=== PATIENT | male | born 1945 | race Caucasian/White ===

== ENCOUNTER 2017-12-03 12:49 | Inpatient (IN) | payer OTHER ==
--- NOTE | 2017-12-03 14:13 | ED.PDOC ---
General ED Provider: Dr. MARY ALICE MORA Chief Complaint: Fever Stated Complaint: CC:Fever and Chills. HPI: 72 y/o cauc male patient brought in from [facility]. states they are visiting here from [facility] and for past 2 days has experienced fever and chills with T elevation to 101-102 deg. with sl resp congestion. 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 Also hx of dementia. Brought to ER for evaluation and treatment. Time Seen by Physician: 13:00 Mode of Arrival: Walk-In Information Source: Patient, Family Exam Limitations: No limitations Nursing and Triage Documentation Reviewed and Agree: Yes Reviewed sepsis parameters & appropriate labs ordered?: Yes System Inflammatory Response Syndrome: Temp 101F or Greater, Pulse >90 BPM Sepsis Protocol: For patient's 13 years and over: Temp is 96.8 and below OR 101 and greater Pulse >90 BPM Resp >20/minute Acutely Altered Mental Status Are patient's symptoms suggestive of a new infection, such as: -Pneumonia -Skin, Soft Tissue -Endocarditis -UTI -Bone, Joint Infection -Implantable Device -Acute Abdominal Infection -Wound Infection -Meningitis -Blood Stream Catheter Infection -Unknown Respiratory Complaint Exam - Respiratory Complaint/Exam Symptoms Are: Still present Timing: Intermittent Initial Severity: Moderate Current Severity: Mild Location: Chest Character: Reports: Non-productive cough Aggravating: Reports: None Alleviating: Reports: Upright position Associated Signs and Symptoms: Reports: Fever. Denies: Rapid breathing, Dyspnea , Chest pain, Pleuritic chest pain, Wheezing, Hemoptysis, Dizziness, Calf pain, Calf swelling, Edema, URI, Nasal congestion, Hoarseness, Sinus discomfort, Vomiting, Sore throat, Weight loss, Decreased oral intake, Increased thirst, Increased appetite, Increased urination History of Healthcare-Acquired Pneumonia: No Related Surgical History: Reports: None (Tonsillar surgery for cancer) Pulmonary Embolism Risk Factors: None Pseudomonas Risk Factors: Reports: None Tuberculosis Risk Factors: Reports: None Status Asthmaticus Risk Factors: Reports: None Home Oxygen Use: No Recent Stress Test: No Recent Echo/LV Function: No Current Antibiotic Use: No Current Asthma Medication Use: No Respiratory Distress: None Inadequate Respiratory Effort: No Dysphagia Present: No Stridor Present: No JVD Present: No Accessory Muscle Use: No Retractions: Not Present Diminished Breath Sounds: No Sinus Tenderness: None Grunting Respirations: No Kussmaul Respirations: No Differential Diagnoses: Bronchospasm (pneumonia) Review of Systems - Review Of Systems Constitutional: Reports: Chills, Fever Eyes: Reports: No symptoms Respiratory: Reports: Cough, Short of air. Denies: Stridor, Wheezing Cardiac: Reports: No symptoms GI: Reports: No symptoms : Reports: No symptoms Musculoskeletal: Reports: No symptoms Skin: Reports: No symptoms Neurological: Reports: No symptoms (mild dementia) Endocrine: Reports: No symptoms Hematologic/Lymphatic: Reports: No symptoms All Other Systems: Reviewed and Negative Past Medical History - Past Medical History Previously Healthy: No Endocrine: Reports: None, Dyslipidemia Cardiovascular: Reports: None Respiratory: Reports: None Hematological: Reports: None Gastrointestinal: Reports: None Genitourinary: Reports: None Neuro/Psych: Reports: Dementia Musculoskeletal: Reports: None Cancer: Reports: Other (tonsillar) - Surgical History General Surgical History: Reports: Other (tonsillar and neck disection) - Family History Family History: Reports: None - Social History Smoking Status: Former smoker Hx Substance Use: No Alcohol Screening: Occasionally Lives: With family Physical Exam - Physical Exam Appearance: Ill-appearing, Thin Pain Distress: None Eyes: EDUARDA, EOMI, Conjunctiva clear ENT: Ears normal, Nose normal, Oropharynx normal Neck: Supple Respiratory: Airway patent, Breath sounds diminished, Respirations nonlabored Cardiovascular: RRR, Pulses normal GI/: Soft, Nontender, No masses, Bowel sounds normal, No Organomegaly, Bowel sounds hypoactive Musculoskeletal: Normal strength, ROM intact, No edema, No calf tenderness Skin: Warm, Dry, Normal color Neurological: Sensation intact, Motor intact, Reflexes intact, Cranial nerves intact, Alert, Disoriented Psychiatric: Affect appropriate, Mood appropriate Interpretation - Radiology Interpretation Radiology Interpretation By: Radiologist Radiology Results: Positive Exam Interpreted: CXR, CT Scan Xray Comments: Lung consolidation , poss neoplasm, T 11 compression fracture Re-Evaluation - Re-Evaluation Time of Re-Evaluation: 15:00 Vital Signs Stable: Yes Appearance: NAD Lungs: Other (dim bs) Physician Notification - Case Discussed Physician Notified: Bejgum /agrees to admission Critical Care Note - Critical Care Note Total Time (mins): 60 (Monitored patients condition, reviewed test results and initiated definitive therapy) Course - Course Hematology/Chemistry: 12/04/17 07:05 12/04/17 07:05 Orders, Labs, Meds: Lab Review 12/03/17 12/03/17 12/03/17 08:45 13:15 13:15 WBC 22.10 H RBC 4.28 L Hgb 14.1 Hct 41.9 L MCV 97.9 H MCH 32.9 H MCHC 33.7 RDW Coeff of Radha 13.1 Plt Count 132 L Immature Gran % (Auto) 1.1 Neut % (Auto) 89.2 Lymph % (Auto) 3.9 L [place] % (Auto) 5.7 Eos % (Auto) 0.0 Baso % (Auto) 0.1 Immature Gran # (Auto) 0.3 Neut # (Auto) 19.7 H Lymph # (Auto) 0.9 Traverse # (Auto) 1.3 Eos # (Auto) 0.0 Baso # (Auto) 0.0 Sodium 136 Potassium 3.5 Chloride 100 Carbon Dioxide 24 Anion Gap 15.5 BUN 15 Creatinine 1.99 H Estimated GFR (MDRD) 33.00 BUN/Creatinine Ratio 7.53 Glucose 123 H Lactic Acid Calcium 9.4 Total Bilirubin 2.1 H AST 16 ALT 12 Alkaline Phosphatase 66 Troponin I < 0.0100 Total Protein 7.5 Albumin 3.6 Globulin 3.9 Albumin/Globulin Ratio 0.92 Urine Color Yellow Urine Clarity Clear Urine pH 6.0 Ur Specific [place] >=1.030 Urine Protein 2+ Urine Glucose (UA) Negative Urine Ketones Negative Urine Blood Trace-lysed Urine Nitrite Negative Urine Bilirubin 1+ Urine Urobilinogen 4.0 Ur Leukocyte Esterase Negative Urine Microscopic RBC 0-2 Ur Squamous Epith Cells Not present Urine Mucus 2+ Influ A Molecular Assay Influ B Molecular Assay 12/03/17 12/03/17 14:30 14:45 WBC RBC Hgb Hct MCV MCH MCHC RDW Coeff of Radha Plt Count Immature Gran % (Auto) Neut % (Auto) Lymph % (Auto) [place] % (Auto) Eos % (Auto) Baso % (Auto) Immature Gran # (Auto) Neut # (Auto) Lymph # (Auto) [place] # (Auto) Eos # (Auto) Baso # (Auto) Sodium Potassium Chloride Carbon Dioxide Anion Gap BUN Creatinine Estimated GFR (MDRD) BUN/Creatinine Ratio Glucose Lactic Acid 13.6 Calcium Total Bilirubin AST ALT Alkaline Phosphatase Troponin I Total Protein Albumin Globulin Albumin/Globulin Ratio Urine Color Urine Clarity Urine pH Ur Specific [place] Urine Protein Urine Glucose (UA) Urine Ketones Urine Blood Urine Nitrite Urine Bilirubin Urine Urobilinogen Ur Leukocyte Esterase Urine Microscopic RBC Ur Squamous Epith Cells Urine Mucus Influ A Molecular Assay Negative by naat Influ B Molecular Assay Negative by naat Orders Category Date Time Status EKG-(ED ONLY) Stat CARDIO 12/03/17 14:19 Completed NEBULIZER TREATMENT Routine CARDIO 12/03/17 17:05 Completed OXYGEN Routine CARDIO 12/03/17 17:03 Completed ACTIVITY .Early Mobilization for VTE Prevention CARE 12/03/17 17:03 Active INTAKE & OUTPUT Q8HR CARE 12/03/17 17:03 Active NPO REMINDER: IMAGING ONCE CARE 12/03/17 16:02 Completed VITAL SIGNS Q4HR CARE 12/03/17 17:03 Active CARDIAC DIET DIETARY 12/03/17 Dinner Completed BLOOD CULTURE (ED ONLY) Stat LAB 12/03/17 14:30 Completed CBC W/ AUTO DIFF DAILY@0600 LAB 12/04/17 07:05 Completed CBC W/ AUTO DIFF Stat LAB 12/03/17 13:15 Completed CMP [COMPREHENSIVE METABOLIC PANEL] Stat LAB 12/03/17 13:15 Completed COMPREHENSIVE METABOLIC PANEL DAILY@0600 LAB 12/04/17 07:05 Completed CREATINE KINASE Q8H LAB 12/03/17 23:10 Completed FLU A & B MOLECULAR [FLU A/B MOLECULAR] Stat LAB 12/03/17 14:45 Completed LACTIC ACID Stat LAB 12/03/17 14:30 Completed RAPID STREP SCREEN [MOLECULAR GROUP A STREP] Stat LAB 12/03/17 14:45 Completed TROPONIN I Q8H LAB 12/03/17 23:10 Completed TROPONIN I Stat LAB 12/03/17 13:15 Completed URINALYSIS C & S IF INDICATED Stat LAB 12/03/17 08:45 Completed Acetaminophen [Tylenol] MEDS 12/03/17 17:03 Discontinued 650 mg PO Q4H PRN Azithromycin [Zithromax] MEDS 12/03/17 17:01 Discontinued 500 mg PO ONCE STA Ceftriaxone Sodium [Rocephin] MEDS 12/03/17 17:11 Discontinued 1 gm .ROUTE .STK-MED ONE Ceftriaxone Sodium [Rocephin] 1 gm MEDS 12/03/17 17:10 Discontinued 0.9 % Sodium Chloride [Sodium Chloride] 50 ml IV ONCE Donepezil HCl [Aricept] MEDS 12/04/17 09:00 Discontinued 10 mg PO DAILY Fluoxetine HCl [Prozac] MEDS 12/04/17 09:00 Discontinued 10 mg PO DAILY Ipratropium/Albuterol Neb [Duoneb] MEDS 12/03/17 18:00 Discontinued 1 vial NEB RTQ6H Simvastatin [Zocor] MEDS 12/03/17 21:00 Discontinued 10 mg PO BEDTIME Sodium Chloride 0.9% [Sodium Chloride] 1,000 ml MEDS 12/03/17 17:30 Discontinued IV 75 mls/hr RESUSCITATION STATUS Routine OTHERS 12/03/17 17:03 Completed CHEST, 1V AP ONLY Stat RADS 12/03/17 14:[address] ABDOMEN/PELVIS WO CONTRAST Stat RADS 12/03/17 15:[address] CHEST W/O CONTRAST Stat RADS 12/03/17 15:59 Completed Medications Discontinued Medications Generic Name Dose Route Start Last Admin Trade Name Freq PRN Reason Stop Dose Admin Acetaminophen 650 mg 12/03/17 17:03 12/03/17 21:41 Tylenol PO 650 mg Q4H PRN Administration Mild Pain Albuterol/Ipratropium 1 vial 12/03/17 18:00 12/04/17 23:20 Duoneb NEB Not Given RTQ6H ALDEN Azithromycin 500 mg 12/03/17 17:01 12/03/17 17:20 Zithromax PO 12/03/17 17:02 500 mg ONCE STA Administration Azithromycin 500 mg 12/04/17 09:00 12/04/17 08:56 Zithromax PO 12/05/17 09:01 500 mg DAILY ALDEN Administration Bupropion HCl 75 mg 12/04/17 09:00 12/04/17 08:56 Wellbutrin PO 75 mg DAILY ALDEN Administration Dexamethasone Sodium Phosphate 4 mg 12/04/17 08:34 12/04/17 08:57 Decadron 4 Mg/Ml Sdv IM 12/04/17 08:35 4 mg ONCE STA Administration Donepezil HCl 10 mg 12/04/17 09:00 12/04/17 08:25 Aricept PO 10 mg DAILY ALDEN Administration Fluoxetine HCl 10 mg 12/04/17 09:00 12/04/17 08:25 Prozac PO 10 mg DAILY ALDEN Administration Haloperidol Lactate 1 mg 12/04/17 23:10 12/05/17 00:19 Haldol IM 12/04/17 23:11 Not Given ONCE STA Sodium Chloride 1,000 mls @ 75 mls/hr 12/03/17 17:30 12/04/17 08:25 Sodium Chloride IV 75 mls/hr .[id number] ALDEN Administration Ceftriaxone Sodium 1 gm/ 50 mls @ 75 mls/hr 12/03/17 17:10 12/03/17 17:22 Sodium Chloride IV 12/03/17 17:49 75 mls/hr ONCE STA Administration Ceftriaxone Sodium 1 gm/ 50 mls @ 75 mls/hr 12/04/17 09:00 12/04/17 08:56 Sodium Chloride IV 75 mls/hr DAILY ALDEN Administration Simvastatin 10 mg 12/03/17 21:00 12/04/17 20:45 Zocor PO 10 mg BEDTIME ALDEN Administration Vital Signs: Temp Pulse Resp BP Pulse Ox 12/03/17 12:53 102.2 F H 91 H 20 139/67 95 Departure - Departure Time of Disposition: 17:50 Disposition: ADMITTED INPATIENT Discharge Problem: Community acquired pneumonia, Thoracic compression fracture, Dementia, Tonsillar cancer Condition: Stable Pt referred to PMD for follow-up: Yes IPMP verified?: No Allergies/Adverse Reactions: Allergies No Known Allergies Allergy (Unverified 12/03/17 13:26) Home Medications: Ambulatory Orders Bupropion HCl [Wellbutrin] 75 mg PO DAILY 12/03/17 Donepezil HCl [Aricept] 10 mg PO DAILY 12/03/17 Fluoxetine HCl [Prozac] 10 mg PO DAILY 12/03/17 Simvastatin 10 mg PO BEDTIME 12/03/17 Disposition Discussed With: Patient, Family (Admitted to Dr Ribera/IV antibiotics and pulm therapy)
--- NOTE | 2017-12-03 15:11 | DI ---
EXAM: Chest one view, frontal view only. HISTORY: Chest pain. COMPARISON: None available. FINDINGS: The heart size is normal. There is no pulmonary vascular congestion. Rounded areas of co nsolidation seen in the left suprahilar region and right lung base. No pleural effusion or pneumotho rax identified. Clips seen in the left supraclavicular region. There has been previous ACDF. IMPRESSION: Bilateral rounded areas of consolidation which could represent pneumonia. Neoplasm not excluded. Sh ort-term follow-up is recommended.
--- NOTE | 2017-12-03 16:45 | CT ---
EXAM: CT abdomen pelvis without contrast HISTORY: Chest pain and squamous cell carcinoma COMPARISON: Same day CT chest TECHNIQUE: Serial axial images of the abdomen pelvis were performed from the lung bases through the inferior pelvis without contrast. These were viewed in multiple planes. FINDINGS: Right lung base demonstrates consolidation. Evaluation is limited due to lack of contrast. The liver is diffusely low in attenuation. Gallbladd er has been removed. The pancreas is unremarkable. The spleen demonstrates calcified granulomas. T he adrenal glands are unremarkable. There is nonspecific perinephric stranding. There is no stone. The stomach is minimally distended. Small bowel in the abdomen pelvis demonstrates multiple fluid distended loops of small bowel in the a bdomen pelvis. There is a fat-containing umbilical hernia. The appendix is normal. Colon demonstrat es diverticulosis without diverticulitis. Urinary bladder is distended. Prostate is normal. Urinar y bladder is distended. The osseous structures demonstrate mild compression deformity at T11.. Ther e is a superior round lucent lesion involving the superior endplate of L5 suggestive of Schmorl's nod e. IMPRESSION: 1. No evidence of metastatic disease. 2. Questionable hepatic steatosis. 3. Nonspecific bilateral perinephric stranding. Nonspecific fluid filled loops of small bowel. 4. Small fat-containing umbilical hernia with diverticulosis and no diverticulitis. 5. Age indeterminate probable chronic T11 compression deformity with Schmorl's node at L5.
--- NOTE | 2017-12-03 16:47 | CT ---
EXAM: CT chest without contrast HISTORY: Abnormal chest radiograph COMPARISON: Radiograph chest same day TECHNIQUE: CT chest performed without intravenous contrast. Coronal and sagittal reformatted images obtained. FINDINGS: Thyroid and thoracic inlet appear normal. Heart normal in size. Coronary calcifications. No pericardial effusion. Aorta borderline aneurysmal dilation ascending aorta measuring 4.0 cm. E sophagus unremarkable. Evaluation for lymphadenopathy limited without contrast. No lymphadenopathy identified. Granulomatous calcification. No acute abnormalities of the bones. Degenerative change in the spine. Mild age indeterminate compression deformity T11 with chronic features favored. Centr al airway patent. No pleural effusion or pneumothorax. There is consolidation in the left upper lob e that is somewhat rounded. There is right lower lobe consolidation. Mild subsegmental atelectasis in the right middle lobe. 4 mm nodule right lung image 19. Please refer to separate report CT abdom en pelvis regarding findings in the upper abdomen. IMPRESSION: 1. Bilateral consolidation most likely represents pneumonia, though appears somewhat rounded in the left upper lobe and CT chest follow-up is recommended in 6 - 8 weeks to ensure resolution/exclude und erlying neoplasm. 2. 4 mm nodule right lung. This can be assessed on follow-up. 3. Borderline aneurysmal dilation ascending aorta measuring 4.0 cm. 4. Coronary calcifications. 5. Mild age indeterminate compression deformity T11, favored chronic.
[2017-12-03] MEDS ORDERED: LIDOCAINE HCL 1% SDV IM STA (17:01)
[2017-12-03] MEDS ORDERED: ROCEPHIN IM STA (17:01)
[2017-12-03] MEDS ORDERED: ZITHROMAX PO STA (17:01)
[2017-12-03] MEDS ORDERED: TYLENOL PO PRN (17:03)
[2017-12-03] MEDS ORDERED: ROCEPHIN 1 GM in SODIUM CHLORIDE 50 ML IV STA (17:10)
[2017-12-03] MEDS ORDERED: ROCEPHIN ONE (17:11)
[2017-12-03] MEDS: DUONEB NEB SCH ×2 (17:51→22:15)
[2017-12-03] MEDS: SODIUM CHLORIDE 1,000 ML IV SCH (18:30)
[2017-12-03 18:36] VITALS: BMI 27.5
[2017-12-03] MEDS: ZOCOR PO SCH (21:27)
[2017-12-04] MEDS: DUONEB NEB SCH ×4 (05:02→23:20)
[2017-12-04] MEDS: SODIUM CHLORIDE 1,000 ML IV SCH (08:25)
[2017-12-04] MEDS ORDERED: DECADRON 4 MG/ML SDV IM STA (08:34)
[2017-12-04] MEDS ORDERED: ARICEPT PO SCH (09:00)
[2017-12-04] MEDS ORDERED: PROZAC PO SCH (09:00)
[2017-12-04] MEDS ORDERED: WELLBUTRIN PO SCH (09:00)
[2017-12-04] MEDS ORDERED: ROCEPHIN 1 GM in SODIUM CHLORIDE 50 ML IV SCH (09:00)
[2017-12-04] MEDS ORDERED: NON-FORMULARY MEDICATION (Bupropion Hcl 75 MG) PO SCH (09:00)
[2017-12-04] MEDS ORDERED: ZITHROMAX PO SCH (09:00)
--- NOTE | 2017-12-04 10:13 | CT ---
EXAM: Fall CT thoracic spine HISTORY: Back pain. COMPARISON: CT chest 12/03/2017 TECHNIQUE: Serial axial images of the thoracic spine were obtained without contrast. These were vie wed in multiple planes. FINDINGS: The thoracic spine. The demonstrates mild wedge deformity and height loss at T11. There i s disc space narrowing and osteophyte formation from T8-T11. There is minimal facet arthropathy. Th ere is no lytic or blastic lesion identified. There is no abnormal curvature. There is bilateral mil d to moderate narrowing at T9-T10. The soft tissues are better evaluated on CT chest yesterday. IMPRESSION: 1. Mild compression deformity at T11 is favored to be chronic. No acute fracture is identified. 2. Degenerative disease with disc space narrowing and osteophyte formation most pronounced from T8-T 11. 3. Degenerative change contributes to mild to moderate bilateral neural foraminal narrowing at T9-T1 0.
[2017-12-04] MEDS: ZOCOR PO SCH (20:45)
[2017-12-04 22:42] VITALS: BP 116/68; TEMP 98.4
[2017-12-04] MEDS ORDERED: HALDOL IM STA (23:10)
[2017-12-04] MEDS ORDERED: HALDOL ONE (23:25)
--- NOTE | 2017-12-26 06:52 | PN ---
DATE OF SERVICE: 12/04/17 SUBJECTIVE: Admitted from the emergency room yesterday with bilateral pneumonia, right upper , middle and left upper lobe. The patient's white count is better, 15,000 today. No fever after 11 p.m. yesterday 102.9 getting IV Rocephin and Vancomycin. Coughing some, no fever, chest pain, PND or orthopnea. REVIEW OF SYSTEMS: CONSTITUTIONAL: No night sweats. No fatigue, malaise, lethargy. No fever or chills. HEENT: Eyes: No visual changes. No eye pain. No eye discharge. ENT: No runny nose. No epistaxis. No sinus pain. No sore throat. No odynophagia. No congestion. RESPIRATORY: Cough and congestion. No hemoptysis. No shortness of breath. No PND. CARDIOVASCULAR: No angina symptoms. No CHF symptoms. No atypical chest pain for CAD. No palpitations. No orthopnea. GASTROINTESTINAL: No abdominal pain. No nausea or vomiting. No diarrhea or constipation. No hematemesis. No hematochezia. GENITOURINARY: No urgency. No frequency. No dysuria. No hematuria. No obstructive symptoms. No discharge. No pain. No significant abnormal bleeding. MUSCULOSKELETAL: No musculoskeletal pain; no joint swelling. NEUROLOGICAL: No headache. No neck pain. No syncope. No seizures. No dizziness. PSYCHIATRIC: Not anxious. No depression. No suicidal thoughts. No homicidal thoughts. SKIN: No rash. No lesions. No wounds. ENDOCRINE: No unexplained weight loss. No weight gain. HEMATOLOGIC/LYMPHATIC: No anemia. No purpura. No petechiae. No prolonged or excessive bleeding. No palpable lymph nodes. PHYSICAL EXAMINATION: VITAL SIGNS: BP 109/64, respiratory rate 20, heart rate 70, temperature 98.7, saturation 94. HEENT: Head normocephalic, atraumatic. Eyes: Extraocular muscles are intact. Pupils are equal, round and reactive to light and accommodation. Ears: No lesions. Nose appeared normal. Throat: No exudate or erythema. Pallor positive. No icterus. NECK: Supple. No JVD, no carotid bruit. No lymphadenopathy or thyromegaly. LUNGS: Decreased baseline crackles, right more than left. Percussion note normal. Chest symmetrical. HEART: S1, S2, no S3. No murmurs. No cyanosis or clubbing. No ascites. Pulses: Dorsalis pedis and posterior tibial pulses +1 to +2 both sides. ABDOMEN: Soft. Nontender. Bowel sounds active. No CVA tenderness. No mass felt. EXTREMITIES: No edema. Full range of motion of all extremities, equal. NEUROLOGIC: No focal deficit. Cranial nerves II through XII are grossly intact. No headache, no double vision or headache. SKIN: Not dry. Intact. Turgor - normal. LYMPHATIC: No palpable lymph nodes/no lymphedema. MUSCULOSKELETAL: Normal joints with no swelling. Muscle tone is normal. LABS: White count 15.12, hemoglobin 12.3, hematocrit 36.6, platelet count 101. Sodium 138, potassium 3.8, chloride 103, bicarb 26, BUN 16, creatinine 1.50. ASSESSMENT: 1. BILATERAL PNEUMONIA 2. ANEMIA PROBABLY FROM HEMODILUTION 3. HISTORY OF CAD STATUS POST STENT 4. ALZHEIMER'S DEMENTIA 5. LEWY BODY SYNDROME 6. PNEUMONIA 7. HISTORY OF PNEUMONIA 8. OSTEOARTHRITIS 9. DEPRESSION 10. ALCOHOL USE 11. LEFT TONSIL SURGERY 12. STATUS POST CHEMOTHERAPY PLAN: 1. Continue Rocephin 2. Azithromycin 3. Will give dose of Decadron 4. IV fluids 5. Breathing treatment TIME SPENT: More than 35 minutes. Plan and coordination of the patient's care discussed in the presence of nurse. MTDD
--- NOTE | 2017-12-26 07:05 | PN ---
DATE OF SERVICE: 12/04/17 SUBJECTIVE: This 72-year-old male admitted with bilateral pneumonia, community acquired, cough and congestion. He still has some cough but no fever since admission. REVIEW OF SYSTEMS: CONSTITUTIONAL: No fever, no chills. HEENT: Normal. ENDOCRINE: No weight gain, no weight loss. CVS: No angina symptoms. No CHF symptoms. No palpitations. No atypical chest pain for CAD. No shortness of breath. No PND, no orthopnea. RESPIRATORY: Cough and congestion. GI: No nausea, no vomiting. No abdominal pain. : No hematuria. No polyuria. MUSCULOSKELETAL: No joint swelling. PSYCHIATRIC: Not anxious. No depression. No suicidal thoughts. No homicidal thoughts. SKIN: Intact. No rash. PHYSICAL EXAMINATION: V/S: BP 109/64, respiratory rate 20, heart rate 70, temperature 98.7, saturation 94. HEENT: Normocephalic, atraumatic. Mucosa dry. Pallor positive. No icterus. Sick looking male lying in bed. NECK: Supple. No JVD, no carotid bruit. No lymphadenopathy. LUNGS: Decreased entry with basilar crackles. HEART: S1, S2 normal. No S3. No murmur, gallop or regurgitation. ABDOMEN: Soft, nontender. Bowel sounds active. No rigidity. No rebound or guarding. No CVA tenderness. EXTREMITIES: No cyanosis, clubbing or pedal edema. MUSCULOSKELETAL: No joint swelling. NEUROLOGIC: Awake, alert, oriented times three. No focal deficit. LYMPHATIC: No lymph nodes palpable. SKIN: Intact. LABS: White count 15.12, hemoglobin 12.3, hematocrit 36.6, platelet count 101. Sodium 138, potassium 3.8, chloride 103, bicarb 26, BUN 16, creatinine 0.50, glucose 113. ASSESSMENT: 1. BIBASILAR BILATERAL PNEUMONIA, COMMUNITY ACQUIRED 2. HISTORY OF TONSILLAR CANCER WITH CHEMOTHERAPY AND RADIATION 3. ELEVATED WHITE COUNT 4. ALZHEIMER'S DEMENTIA, EARLY ONSET, LEWY BODY 5. CAD 6. HYPERTENSION 7. DYSLIPIDEMIA 8. OSTEOARTHRITIS 9. DJD SPINE PLAN: 1. Continue Rocephin 1 gm daily 2. Azithromycin 3. Duonebs 4. IV fluids 5. Daily I & O's TIME SPENT: More than 35 minutes MTDD
--- NOTE | 2017-12-26 09:04 | AMA ---
DATE OF SERVICE: 12/04/17 HISTORY: The patient decided he has to go . The patient has history of dementia. We did call the patient's and she came and tried to talk the patient out of going but he was adamant that he needs to be going out and doesn't want to stay here. I explained to the that the patient has pneumonia in both lungs and can be life threatening; verbalized understanding. She said that probably because of the dementia this is a new place and he does not want to say. The patient's will be with him. In case he changes his mind, she will bring him back. TIME SPENT: More than 15 to 20 minutes in discussion. DEREJE
--- NOTE | 2017-12-26 09:22 | HP ---
DATE OF SERVICE: 12/03/17 CHIEF COMPLAINT: Fever, chills and coughing. HISTORY OF PRESENT ILLNESS: This is a 72-year-old male who is visiting from [place] and staying at [facility]. He started having fever, chills. Temperature was 102.2. He has been coughing for 2 to 3 days. 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 He was seen in the emergency room by Dr. Myers. White count was 21,[address] scan of chest shows right and left-sided pneumonia. At that time , the patient was admitted to the hospital for IV antibiotics and breathing treatment. REVIEW OF SYSTEMS: CONSTITUTIONAL: Weakness, tiredness. Fever and chills. HEENT: Normal. ENDOCRINE: No weight gain; no weight loss. CVS: No chest pain. No PND, no orthopnea. No shortness of breath. No PND, no orthopnea. RESPIRATORY: Cough and congestion. No hemoptysis. GI: No nausea, no vomiting. No abdominal pain. No melena. : No hematuria. No polyuria. MUSCULOSKELETAL: No joint swelling. PSYCHIATRIC: Not anxious. No depression. No suicidal thoughts. No homicidal thoughts. SKIN: Intact, no open lesions. PAST MEDICAL HISTORY: CAD S/P AL S/P STENTS ALZHEIMER'S DEMENTIA LEWY BODY DEMENTIA PNEUMONIA HYPERTENSION DYSLIPIDEMIA LEFT TONSILLAR SURGERY WITH CHEMOTHERAPY DEPRESSION/ANXIETY OSTEOARTHRITIS PAST SURGICAL HISTORY: BILATERAL CATARACT SURGERY CHOLECYSTECTOMY LUNG PROCEDURE PERSONAL HISTORY: , lives with . Smokes sometimes. FAMILY HISTORY: Significant for high blood pressure. MEDICATIONS: (HOME) Prozac Aricept Simvastatin Wellbutrin ALLERGIES: NKDA PHYSICAL EXAMINATION: V/S: BP 134/88, respiratory rate 20, heart rate 100, temperature 103.1. Saturation 93%. HEENT: Atraumatic, normocephalic. No scleral icterus. Sick-looking male lying in bed not in any distress. NECK: Supple. No JVD, no bruit. No lymphadenopathy. No thyromegaly. HEART: S1, S2 normal. No murmur. No cyanosis or clubbing. No ascites. LUNGS: Decreased with basilar crackles. No wheezing. ABDOMEN: Soft, nontender. Bowel sounds are active. No CVA tenderness. No rigidity or guarding. EXTREMITIES: No pedal edema. No cyanosis or clubbing PSYCHIATRIC: Alert, oriented. MUSCULOSKELETAL: Normal joints, no swelling. SKIN: Left side of neck - old surgical scar is seen. LYMPHATIC: No lymph nodes palpable. LABS: Sodium 138, potassium 3.8, chloride 103, bicarb 26, BUN 16, creatinine 1.50, glucose 113. White count 15.12, hemoglobin 12.3, hematocrit 36.6, platelet count 101. ASSESSMENT: 1. BIBASILAR PNEUMONIA, COMMUNITY ACQUIRED 2. HYPERTENSION 3. CAD, HISTORY OF STENT 4. ANGINA 5. DYSLIPIDEMIA 6. OSTEOARTHRITIS 7. DJD SPINE PLAN: 1. Admit the patient to the regular floor 2. Rocephin 1 gm daily 3. Azithromycin 4. IV fluids 5. Solu-Medrol 6. Duonebs TIME SPENT: MORE THAN 75 minutes MTDD
== END 2017-12-04 23:36 | disposition left against medical advice (07) | DRG 194 ==
LOC: ED 12:49 → MEDSURG B 17:16
PROVIDERS: ADMIT Emergency Medicine; ATTEND Emergency Medicine
DX: J18.9 Pneumonia, unspecified organism (principal); M48.54XA Collapsed vertebra, not elsewhere classified, thoracic region, initial encounter for fracture; R50.9 Fever, unspecified; R06.02 Shortness of breath; D72.829 Elevated white blood cell count, unspecified; G30.9 Alzheimer's disease, unspecified; G31.83 Neurocognitive disorder with Lewy bodies; F02.80 Dementia in other diseases classified elsewhere, unspecified severity, without behavioral disturbance, psychotic disturbance, mood disturbance, and anxiety; C09.0 Malignant neoplasm of tonsillar fossa; I10 Essential (primary) hypertension; I25.119 Atherosclerotic heart disease of native coronary artery with unspecified angina pectoris; E78.5 Hyperlipidemia, unspecified; D64.9 Anemia, unspecified; M19.90 Unspecified osteoarthritis, unspecified site; F32.9 Major depressive disorder, single episode, unspecified; M47.9 Spondylosis, unspecified; Z87.891 Personal history of nicotine dependence; Z79.899 Other long term (current) drug therapy; Z72.89 Other problems related to lifestyle; Z95.5 Presence of coronary angioplasty implant and graft; Z87.01 Personal history of pneumonia (recurrent)
CPT/HCPCS: 36415; 80053; 81001; 82550; 82553; 83605; 84484; 85025; 87040; 87502; 87651; 93005; 93010; 94640; 96365; 99284